=== PATIENT | male | born 1960 | race Caucasian/White ===

== ENCOUNTER 2016-10-21 09:56 | Emergency (ER) | payer OTHER ==
[~2016-10-21] VITALS: Ht 195.6 cm; Wt 108.9 kg
[~2016-10-21 09:56] MED LIST: AMBIEN 5 MG TABL5 M1; AMITRIPTYLINE H25 M2 PO; AMITRIPTYLINE H50 M4 PO; ANTIBIOTIC; AZITHROMYCIN 2250 MG PO; FENTANYL PA25 MCG/HR; FLEXERIL PO; HYDROCODONE-AP1 EAC6; HYDROCODONE-AP1 EAC6 PO; LEVAQUIN 750 M750 MG PO; LEVOTHYROXIN0.075 MG PO; LEVOTHYROXINE 0.15MG; NORCO 5-325 TA1 EACH PO; PROAIR HFA8.5 GM INH; TESSALON PERLE100 MG PO; VOLTAREN GEL 1100 G2; XANAX 0.25 MG0.25 MG
[2016-10-21 10:09] VITALS: BP 156/116
== END 2016-10-21 15:55 | disposition left against medical advice (07) ==
LOC: ER 09:56
DX: G89.29 Other chronic pain (principal); R10.9 Unspecified abdominal pain; F11.23 Opioid dependence with withdrawal; E03.9 Hypothyroidism, unspecified; F17.210 Nicotine dependence, cigarettes, uncomplicated; Z76.5 Malingerer [conscious simulation]; Z90.49 Acquired absence of other specified parts of digestive tract; Z91.040 Latex allergy status